=== PATIENT | male | born 1985 | race African-American/Black ===

== ENCOUNTER 2020-06-04 12:51 | Emergency (ER) | payer MEDICAID ==
[~2020-06-04] VITALS: Ht 175.3 cm; Wt 100.0 kg
[2020-06-04 13:03] VITALS: BP 133/92
[2020-06-04] MEDS ORDERED: KETOROLAC 30MG/ML VIAL IM ONE (13:30)
== END 2020-06-04 14:35 | disposition home or self-care (01) ==
LOC: ER 13:32
DX: M25.511 Pain in right shoulder (principal); F20.9 Schizophrenia, unspecified
CPT/HCPCS: 96372; 99283; J1885